=== PATIENT | male | born 1945 | race Caucasian/White ===

== ENCOUNTER 2016-03-17 09:35 | Emergency (ER) | payer OTHER ==
[~2016-03-17] VITALS: Ht 177.8 cm; Wt 92.0 kg
[~2016-03-17 09:35] MED LIST: AMLO5CAP2 PO; HYDC25 PO; LEVO125T72 PO
[2016-03-17 09:38] VITALS: TEMP 36.4; Ht 177.8 cm; Wt 92.0 kg
[2016-03-17] MEDS ORDERED: CHOL1TAB42 PO (10:09)
[2016-03-17] MEDS ORDERED: ASCO500T16 PO (10:09)
[2016-03-17] MEDS ORDERED: VITA1CRE PO (10:09)
[2016-03-17] MEDS ORDERED: ASPI81TA28 PO (10:09)
[2016-03-17] MEDS ORDERED: CYAN10005 PO (10:09)
[2016-03-17] MEDS ORDERED: OMEG10007 PO (10:09)
[2016-03-17] MEDS ORDERED: ACET-1311 PO (10:10)
[2016-03-17] MEDS ORDERED: HYDR25TA4 PO (10:11)
--- NOTE | 2016-03-17 11:06 | DIAGNOSTIC IMAGING REPORT ---
RIGHT SHOULDER MIN 2 VIEWS ROUTINE CLINICAL HISTORY: RIGHT SHOULDER INJURY Right pain. Trauma. COMPARISON: None. DISCUSSION: Mild degenerative change glenohumeral joint. Moderate degenerative change right acromioclavicular joint. Possible grade 1 separation right acromioclavicular joint area old healed fracture midshaft right clavicle. There is no evidence for soft tissue swelling. IMPRESSION: 1. Old healed fracture midshaft right clavicle. 2. Possible grade 1 separation right acromioclavicular joint with moderate superimposed degenerative change. 3. No evidence for fracture. 4. 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 Electronically signed by: Reed Salas M.D. 03/17/2016 11:05 AM Dictated Date/Time: 03/17/2016 11:03 AM
[2016-03-17] MEDS ORDERED: NAPR-1169 PO (11:43)
--- NOTE | 2016-03-17 11:43 | EMERGENCY ROOM VISIT NOTE ---
ED Visit Note First contact with patient: 10:13 Chief Complaint: RIGHT Shoulder Pain History of Present Illness: Patient is a 70-year-old male who presents to the emergency Department for evaluation of his ongoing RIGHT shoulder pain. He reports that he fell on outstretched hand approximately 2 months ago. He had pain to the anterior surface of the RIGHT shoulder. The patient's range of motion has been intact. It is actually improved since the injury. He is had persistent pain which is worse with movement. He denies any numbness or tingling into the distal extremity. He rates his current discomfort as a 3/10. He has been using Tylenol with moderate relief of symptoms. He does report a previous history of clavicle fracture on this affected extremity. Patient denies any associated neck pain, chest pain, pleuritic pain, elbow pain, wrist pain. Medications: Reviewed and discussed with the patient. Allergies: Morphine PMH: As above. SHx: Patient is a 70-year-old male who lives locally. ROS: All pertinent positive and negative review of systems are appropriately documented in the History of Present Illness. Physical Exam: VITAL SIGNS - Vital signs and nursing notes were reviewed. GENERAL - 70-year-old male appearing male appearing his stated age and in noticeable discomfort throughout the exam. NECK - FROM of the cervical spine. No spinous process or paraspinal muscle tenderness to palpation. No nuchal rigidity. LUNGS - Chest wall symmetric without accessory muscle use, intercostals retractions, or central cyanosis. Normal vesicular breath sounds CTA B/L. No wheezes, rales, or rhonchi appreciated. CARDIAC - RRR with S1/S2. No murmur, rubs, or gallops appreciated. MUSCULOSKELETAL - Active ROM of the RIGHT shoulder was assessed as full. Greater than 130 of abduction. No step-off deformities of the clavicle were palpable. Mild tenderness over the AC joint with palpation. No tenderness to palpation at the bicipital insertion. No tenderness to palpation over the deltoid. EMPTY CAN TEST: No pain with mild weakness against examiner's force. NEUROLOGIC - SENSORY: Spinothalamic tract was found to be intact with ability to discriminate sharp versus dull sensation at the level of the RIGHT side of the neck down to the fingertips. No sensory deficits of the dorsal column were appreciated utilizing light touch for evaluation. VASCULAR - Capillary refill was brisk. +3/5 radial pulse palpated. IMAGING: RIGHT SHOULDER MIN 2 VIEWS ROUTINE CLINICAL HISTORY: RIGHT SHOULDER INJURY Right pain. Trauma. COMPARISON: None. DISCUSSION: Mild degenerative change glenohumeral joint. Moderate degenerative change right acromioclavicular joint. Possible grade 1 separation right acromioclavicular joint area old healed fracture midshaft right clavicle. There is no evidence for soft tissue swelling. IMPRESSION: 1. Old healed fracture midshaft right clavicle. 2. Possible grade 1 separation right acromioclavicular joint with moderate superimposed degenerative change. 3. No evidence for fracture. 4. 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 ED Course: Patient was seen and evaluated by myself. X-ray of the affected shoulder was obtained. Imaging results above. Imaging results were reviewed with the patient who acknowledges understanding. The patient was provided a prescription for naproxen to be utilized for the next several days. He is established with orthopedics locally. He will follow-up with their office for continued management. He will return to the emergency department for any changing or worsening symptoms. Patient discharged home in good condition. In the evaluation and treatment of this patient, the following differential diagnoses were considered: Shoulder Contusion, Shoulder Fracture, Shoulder Dislocation, Thoracic Outlet Syndrome, Adhesive Capsulitis, Rotator Cuff Tear, Proximal Clavicle Head Fracture, Apical Pneumonia, Pneumothorax, Hemothorax, or TB. Impression: RIGHT Shoulder Pain - AC Joint Separation Discharge Instructions: You have been treated in the Emergency Department for Shoulder Pain - AC Joint Separation. You have been prescribed Naprosyn (naproxen). This is an anti-inflammatory medication used to help decrease your symptoms and improve your pain. Please take this medication as prescribed. It is best to take this medication with food. Please to not take this antibiotic with other NSAIDS including: Ibuprofen , Advil, Motrin, Aspirin, Aleve, Celebrex, etc. For pain control, you can use the following [id number] medicines (if >12 yo): - Regular strength (325mg/tab) Tylenol (acetaminophen) 2 tabs every 4-6 hours as needed. Do not exceed 12 tablets in a 24 hour period. Avoid taking more than 4 grams (4000 mg) of Tylenol per day. This includes any other sources of acetaminophen you may take on a regular basis. If this is a recent injury (<24 hrs), ice can be applied to the area of pain for the first 3 days to help decrease pain and inflammation. You have been provided the number for an Orthopaedic Surgeon. You should call this number as soon as possible to establish a follow-up visit from today's Emergency Department visit. Return to the Emergency Department if your current symptoms worsen despite treatment course outlined above, or if you develop any of the following symptoms : intractable pain despite aforementioned treatment course or new onset of numbness or tingling of the arm. Problem List Medical Problems: (1) Hypertension Nos Status: Chronic (2) Hypothyroidism Nos Status: Chronic Current/Historical Medications Scheduled Acetaminophen (Tylenol), 650 MG PO DAILY Amlodipine/Benazepril (Lotrel 5MG/20MG), 1 CAP PO DAILY Ascorbic Acid (Ascorbic Acid), 1,000 MG PO DAILY Aspirin (Aspirin Ec), 81 MG PO DAILY Cholecalciferol (Vitamin D), 5,000 PO DAILY Cyanocobalamin (Vitamin B-12), 1,000 MCG PO DAILY Fish Oil ([place]-3), 1 CAP PO DAILY Hydrochlorothiazide (Hctz), 12.5 MG PO DAILY Levothyroxine Sodium (Synthroid), 125 MCG PO DAILY Naproxen (Naprosyn), 500 MG PO BID Vitamin E (Topical) (Vitamin E), 1,000 PO DAILY Allergies Coded Allergies: Morphine (Unverified Adverse Reaction, Unknown, gives high blood pressure , dizziness, 03/17/16) Vital Signs Date Time Temp Pulse Resp B/P Pulse Ox O2 Delivery O2 Flow Rate FiO2 03/17/16 11:53 73 18 151/100 94 03/17/16 09:38 36.4 80 18 168/89 95 Room Air Departure Information Impression Primary Impression: Separation of AC joint, type 1 Dispostion Home / Self-Care Condition GOOD Prescriptions Naproxen (Naprosyn) 500 Mg Tab 500 MG PO BID for 7 Days, #14 TAB Prov: Javy Portillo, JESSY 03/17/16 Referrals Reed Rosales M.D. (PCP) Vernon Reyes, DO Patient Instructions My [facility] Additional Instructions You have been treated in the Emergency Department for Shoulder Pain - AC Joint Separation. You have been prescribed Naprosyn (naproxen). This is an anti-inflammatory medication used to help decrease your symptoms and improve your pain. Please take this medication as prescribed. It is best to take this medication with food. Please to not take this antibiotic with other NSAIDS including: Ibuprofen , Advil, Motrin, Aspirin, Aleve, Celebrex, etc. For pain control, you can use the following [id number] medicines (if >12 yo): - Regular strength (325mg/tab) Tylenol (acetaminophen) 2 tabs every 4-6 hours as needed. Do not exceed 12 tablets in a 24 hour period. Avoid taking more than 4 grams (4000 mg) of Tylenol per day. This includes any other sources of acetaminophen you may take on a regular basis. If this is a recent injury (<24 hrs), ice can be applied to the area of pain for the first 3 days to help decrease pain and inflammation. You have been provided the number for an Orthopaedic Surgeon. You should call this number as soon as possible to establish a follow-up visit from today's Emergency Department visit. Return to the Emergency Department if your current symptoms worsen despite treatment course outlined above, or if you develop any of the following symptoms : intractable pain despite aforementioned treatment course or new onset of numbness or tingling of the arm. Problem Qualifiers Primary Impression: Separation of AC joint, type 1 Encounter type: initial encounter Laterality: right Qualified Codes: S43.101A - Unspecified dislocation of right acromioclavicular joint, initial encounter
[2016-03-17 11:53] VITALS: BP 151/100; PULSE 73; O2SAT 94
--- NOTE | 2016-03-17 15:00 | EMERGENCY ROOM VISIT NOTE ---
ED Visit Note First contact with patient: 10:13 I have personally seen and evaluated the patient with the PA. I agree with the diagnosis and management decisions and have been personally involved in the case. Please see Javy Portillo PA-C's notes for further details of the history, physical and visit.
== END 2016-03-17 11:51 | disposition home or self-care (01) ==
LOC: C.EDB 09:37 → C.EDC 11:51
DX: S43.101A Unspecified dislocation of right acromioclavicular joint, initial encounter (principal); W19.XXXA Unspecified fall, initial encounter; I10 Essential (primary) hypertension; E03.9 Hypothyroidism, unspecified; Z79.82 Long term (current) use of aspirin; Z79.899 Other long term (current) drug therapy